=== PATIENT | female | born 1950 | race Caucasian/White ===

== ENCOUNTER 2023-08-03 15:27 | Outpatient (RCR) | payer OTHER, SELFPAY | END 2023-08-03 23:59 | disposition home or self-care (01) | LOC: RPT 15:27 | PROVIDERS: ATTENDING PHYSICIAN Orthopaedic Surgery; FAMILY PHYSICIAN Family Medicine | DX: Z47.89 Encounter for other orthopedic aftercare (principal); M54.51 Vertebrogenic low back pain; Z73.6 Limitation of activities due to disability; R26.89 Other abnormalities of gait and mobility; M54.6 Pain in thoracic spine | CPT/HCPCS: 97010; 97110; 97140 ==

== ENCOUNTER → 2023-11-21 15:17 | Outpatient (REF) | payer OTHER, SELFPAY | LOC: HWWDC 15:17 | PROVIDERS: ATTENDING PHYSICIAN Nurse Practitioner; FAMILY PHYSICIAN Family Medicine | DX: Z12.31 Encounter for screening mammogram for malignant neoplasm of breast (principal) | CPT/HCPCS: 77063; 77067 ==

== ENCOUNTER 2024-05-07 13:34 | Outpatient (RCR) | payer OTHER, SELFPAY | END 2024-05-07 23:59 | disposition home or self-care (01) | LOC: RPT 13:34 | PROVIDERS: ATTENDING PHYSICIAN Specialist; FAMILY PHYSICIAN Family Medicine | DX: Z47.1 Aftercare following joint replacement surgery (principal); M17.11 Unilateral primary osteoarthritis, right knee; Z73.6 Limitation of activities due to disability; M62.838 Other muscle spasm; Z96.651 Presence of right artificial knee joint | CPT/HCPCS: 97010; 97110; 97112; 97161; 97530 ==

== ENCOUNTER 2024-06-04 10:02 | Outpatient (RCR) | payer OTHER, SELFPAY | END 2024-06-04 23:59 | disposition home or self-care (01) | LOC: RPT 10:02 | PROVIDERS: ATTENDING PHYSICIAN Specialist; FAMILY PHYSICIAN Family Medicine | DX: Z47.1 Aftercare following joint replacement surgery (principal); M17.11 Unilateral primary osteoarthritis, right knee; Z73.6 Limitation of activities due to disability; Z96.651 Presence of right artificial knee joint | CPT/HCPCS: 97010; 97110; 97112; 97140; 97530 ==

== ENCOUNTER 2024-06-25 14:59 | Outpatient (RCR) | payer OTHER, SELFPAY | END 2024-06-27 14:44 | disposition home or self-care (01) | LOC: RPT 14:59 | PROVIDERS: ATTENDING PHYSICIAN Specialist; FAMILY PHYSICIAN Family Medicine | DX: Z47.1 Aftercare following joint replacement surgery (principal); M17.11 Unilateral primary osteoarthritis, right knee; Z73.6 Limitation of activities due to disability; Z96.651 Presence of right artificial knee joint; M62.81 Muscle weakness (generalized) | CPT/HCPCS: 97010; 97110; 97112; 97140; 97530 ==

== ENCOUNTER → 2024-09-21 13:47 | Outpatient (REF) | payer OTHER, SELFPAY | LOC: HWRAD 13:47 | PROVIDERS: ATTENDING PHYSICIAN Nurse Practitioner; FAMILY PHYSICIAN Family Medicine | DX: E78.5 Hyperlipidemia, unspecified (principal) | CPT/HCPCS: 75571 ==

== ENCOUNTER → 2025-02-22 14:08 | Outpatient (REF) | payer OTHER, SELFPAY | LOC: HWRAD 14:08 | PROVIDERS: ATTENDING PHYSICIAN Nurse Practitioner; FAMILY PHYSICIAN Family Medicine | DX: Z13.820 Encounter for screening for osteoporosis (principal); Z12.31 Encounter for screening mammogram for malignant neoplasm of breast | CPT/HCPCS: 77063; 77067; 77080 ==

== ENCOUNTER 2025-04-06 05:49 | Inpatient (IN) | payer OTHER, MEDICARE, SELFPAY ==
[2025-04-05 22:04] VITALS: BP 129/87
[2025-04-05 23:12] LABS: Hematocrit 44.1 % (37.0-47.0); Hemoglobin 14.8 g/dL (12.0-16.0); Mean Corp Hgb Conc. 33.6 g/dL (33.0-37.0); Mean Corpuscular Volume 88.6 fL (81.0-99.0); Nucleated Red Blood Cells % 0 %; Platelet Count 327 10^3/uL (130-400); Red Cell Dist. Width 13.2 % (11.5-14.5)
[2025-04-05 23:28] LABS: ALT (SGPT) 38 U/L (0-35); AST (SGOT) 30 U/L (14-36); Albumin 4.1 g/dl (3.5-5.0); Alkaline Phosphatase 82 U/L (38-126); Blood Urea Nitrogen 27 mg/dl (7-17); Calcium 9.9 mg/dl (8.4-10.2); Carbon Dioxide 28 mmol/L (22-30); Chloride 105 mmol/L (98-107); Glucose 179 mg/dl (70-99); Lipase 656 U/L (23-300); Potassium 3.8 mmol/L (3.5-5.1); Sodium 139 mmol/L (135-145); Total Protein 6.8 g/dl (6.3-8.2); eGFR 59.86
[2025-04-06] VITALS (11 sets, daily range): BP systolic 96–141; BP diastolic 53–70; PULSE 69–70; BMI 23.4
--- NOTE | 2025-04-06 01:29 | ED.GENMED ---
ED Provider Triage
<Surya Stern MD, Resident - Last Filed: 04/06/25 04:16>
-
Patient seen by provider in Triage?: Seen in Triage
History of Present Illness
<Surya Stern MD, Resident - Last Filed: 04/06/25 04:16>
General
Chief Complaint: Head Injury
Source: patient
Exam Limitations: none
Time Seen by Provider: 04/06/25 00:40
History of Present Illness
History of Present Illness:
74 year old female who has been complaining of abdominal pain and cloudy urine since 2 days. Initially she assumed she had a UTI, so she found a bottle of antibiotics at home and took just 1 pill today. She then experienced vomiting and diarrhea.
Was on toilet and experienced lightheadedness, fell off the toilet, hit her head and states that she lost consciousness. She has mild head pain. No dysuria, urgency, frequency, foul smelling urine, fever, chills. Not on blood thinners. The abdominal
pain intermittitent, is moderate in intensity, non radiating, dull in charecter.
Past History
<Surya Stern MD, Resident - Last Filed: 04/06/25 04:16>
Past History
ED Past Medical History: GERD and Hypothyroidism
ED Past Surgical History: Appendectomy, Gynecological and Orthopedic
Social History
Tobacco: Non-smoker
Alcohol: None
Drug: None
Personal:
Living: with family
Review of Systems
<Surya Stern MD, Resident - Last Filed: 04/06/25 04:16>
Review of Systems
All Other Systems: ROS reviewed and negative except as documented in HPI and ROS
Phy Exam
<Surya Stern MD, Resident - Last Filed: 04/06/25 04:16>
General Physical Exam
General Presentation: mild distress
General Habitus: elderly
Cardiovascular Exam
Cardiovascular Exam: regular rate/rhythm, no edema, no gallop, no JVD and no murmur
Pulmonary Exam
Pulmonary Exam: lungs clear and no respiratory distress
Cough: no cough
Gastrointestinal Exam
Gastrointestinal Exam: normal bowel sounds, soft, non distended and tender (moderate tenderness to palpation in the suprapubic area )
Neurological Exam
Neurological Exam: alert, oriented x3 and no motor deficits
Psychiatric Exam
Psychiatric Exam: normal mood/affect
Course
<Surya Stern MD, Resident - Last Filed: 04/06/25 04:16>
Orders/Labs/Results
Orders:
Orders
04/05/25 22:08
CT Head W/o Iv Contrast Urgent
Comment:
Reason For Exam: head injury
04/05/25 22:09
Urinalysis Reflex To Culture Urgent
Date Specimen was Collected: 04/05/25
Time Specimen was Collected: 22:09
04/05/25 23:05
Complete Blood Count/With Diff Urgent
Comprehensive Metabolic Panel Urgent
Lactic Acid Urgent
Lipase Urgent
04/06/25 01:42
Electrocardiogram (*1) Urgent
Reason for Study: Syncope
CT Abd/pelvis W Iv Cont Urgent
Comment:
Reason For Exam: abd pain, vomiting
EKG- Treatment ONCE
04/06/25 02:38
Urine Microscopic Reflex Cult Urgent
Urine Culture Urgent
ULYSSES Source: U
Specimen Description:
Date Specimen was Collected: 04/05/25
Time Specimen was Collected: 22:09
04/06/25 03:49
CefTRIAXone [Rocephin] 1,000 mg IV NOW STA
04/06/25 03:50
0.9% Sodium Chloride 1000 ml [Nss] 1,000 ml IV BOLUS
04/06/25 03:58
Stool Culture Urgent
ULYSSES Source: Feces/Stool
Specimen Description:
04/06/25 04:00
Blood Culture Q30M
ULYSSES Source: Blood/Venous
Specimen Description:
04/06/25 04:30
Blood Culture Q30M
ULYSSES Source: Blood/Venous
Specimen Description:
Abnormal Lab Results
04/05/25 04/06/25
23:05 02:38
WBC 17.9 H 10^3/uL
(4.8-10.8)
Abs Immat Gran (auto) 0.1 H 10^3/uL
(0-0.05)
Absolute Neuts (auto) 15.8 H 10^3/uL
(1.4-6.5)
Neutrophils % 88.4 H %
(42.2-75.2)
Lymphocytes % 8.5 L %
(20.5-51.1)
BUN 27 H mg/dl
(7-17)
Glucose 179 H mg/dl
(70-99)
ALT 38 H U/L
(0-35)
Lipase 656 H U/L
(23-300)
Urine Ketones 1+ A
(Negative)
Ur Occult Blood Reflex 1+ A
(Negative)
Leukocyte Esterase Rfl 1+ A
(Negative)
Urine Albumin (Reflex) 2+ A
(Neg - Trace)
04/05/25 23:05
04/05/25 23:05
Vital Signs
Initial and Last Documented VS:
Initial Vital Signs
Pulse Resp BP Pulse Ox
95 18 129/87 98
04/05/25 22:04 04/05/25 22:04 04/05/25 22:04 04/05/25 22:04
Last Documented Vital Signs
Temp Pulse Resp BP Pulse Ox
97.3 F 95 21 124/70 96
04/06/25 01:04 04/06/25 03:30 04/06/25 03:30 04/06/25 03:00 04/06/25 02:45
<Scotty Payton MD - Last Filed: 04/06/25 02:13>
Orders/Labs/Results
Orders:
Orders
04/05/25 22:08
CT Head W/o Iv Contrast Urgent
Comment:
Reason For Exam: head injury
04/05/25 22:09
Urinalysis Reflex To Culture Urgent
Date Specimen was Collected: 04/05/25
Time Specimen was Collected: 22:09
04/05/25 23:05
Complete Blood Count/With Diff Urgent
Comprehensive Metabolic Panel Urgent
Lactic Acid Urgent
Lipase Urgent
04/06/25 01:42
Electrocardiogram (*1) Urgent
Reason for Study: Syncope
CT Abd/pelvis W Iv Cont Urgent
Comment:
Reason For Exam: abd pain, vomiting
EKG- Treatment ONCE
04/06/25 02:38
Urine Microscopic Reflex Cult Urgent
Urine Culture Urgent
ULYSSES Source: U
Specimen Description:
Date Specimen was Collected: 04/05/25
Time Specimen was Collected: 22:09
04/06/25 03:49
CefTRIAXone [Rocephin] 1,000 mg IV NOW STA
04/06/25 03:50
0.9% Sodium Chloride 1000 ml [Nss] 1,000 ml IV BOLUS
04/06/25 03:58
Stool Culture Urgent
ULYSSES Source: Feces/Stool
Specimen Description:
04/06/25 04:00
Blood Culture Q30M
ULYSSES Source: Blood/Venous
Specimen Description:
04/06/25 04:30
Blood Culture Q30M
ULYSSES Source: Blood/Venous
Specimen Description:
Abnormal Lab Results
04/05/25 04/06/25
23:05 02:38
WBC 17.9 H 10^3/uL
(4.8-10.8)
Abs Immat Gran (auto) 0.1 H 10^3/uL
(0-0.05)
Absolute Neuts (auto) 15.8 H 10^3/uL
(1.4-6.5)
Neutrophils % 88.4 H %
(42.2-75.2)
Lymphocytes % 8.5 L %
(20.5-51.1)
BUN 27 H mg/dl
(7-17)
Glucose 179 H mg/dl
(70-99)
ALT 38 H U/L
(0-35)
Lipase 656 H U/L
(23-300)
Urine Ketones 1+ A
(Negative)
Ur Occult Blood Reflex 1+ A
(Negative)
Leukocyte Esterase Rfl 1+ A
(Negative)
Urine Albumin (Reflex) 2+ A
(Neg - Trace)
04/05/25 23:05
04/05/25 23:05
Vital Signs
Initial and Last Documented VS:
Initial Vital Signs
Pulse Resp BP Pulse Ox
95 18 129/87 98
04/05/25 22:04 04/05/25 22:04 04/05/25 22:04 04/05/25 22:04
Last Documented Vital Signs
Temp Pulse Resp BP Pulse Ox
97.3 F 95 21 124/70 96
04/06/25 01:04 04/06/25 03:30 04/06/25 03:30 04/06/25 03:00 04/06/25 02:45
<Surya Stern MD, Resident - Last Filed: 04/06/25 04:16>
MDM/Problems Addressed
MDM/Problems Addressed:
74 y/o female presents with abdominal pain, s/p head injury, and an episode of syncope while using toilet.
Will order non contrast CT scan of head as she meets Dixon head ct criteria.
Awaiting results of UA
Will order CT scan of abdomen as she has increased wbc count and suprapubic pain
Ordered EKG to check for cardiovascular causes of syncope
<Surya Stern MD, Resident - Last Filed: 04/06/25 04:16>
*Pulse Oximetry
SaO2: 98
<Surya Stern MD, Resident - Last Filed: 04/06/25 04:16>
Update Note
Update Note:
- CT of the head normal
- UA shows 1+ leucocyte esterase and negative nitrates so possible UTI infection
-
ED Attending Note
<Surya Stern MD, Resident - Last Filed: 04/06/25 04:16>
ED Attending Note
Patient seen and examined by attending physician: Yes
-
Portions of this chart may have been created with voice recognition software.� Occasional wrong word or��sound alike� substitutions may have occurred due to the inherent limitations of voice recognition software.
<Scotty Payton MD - Last Filed: 04/06/25 02:13>
ED Attending Note
Patient seen and examined by attending physician: Yes
I performed a history and physical exam of patient and discussed management with resident, I reviewed resident's note and agree with documented findings and plan of care.: Yes
ED Attending Note:
I have seen and evaluated the patient with a [id number] encounter. I have spoken to the resident and involved in the medical history, the physical exam, medical decision making.
Evaluation and management service: agree unless noted differently below.
Results interpretation: agree unless noted differently below.
Focused HPI: 74-year-old female with a past medical history as noted presents to the ER with her for evaluation of multiple issues�primarily complaining of abdominal pain but also had syncopal episode tonight and had head strike. Patient
reports that she has been having cloudy urine for about 2 days and has been having some abdominal pain which has been worsening over that period of time. She says that tonight has been having some vomiting as well as loose stools. While she was on
the toilet she became lightheaded and had syncopal episode. She says she hit her head on the ground. She denies any other injuries. No headache or neck pain, back pain or pain in the extremities. She denies any associated chest pain or
palpitations. Denies any other acute complaints.
Physical exam: Awake and alert not in distress. Vital signs all within acceptable range. She has no signs of significant trauma to the head. No tenderness in the thoracic or lumbar spine or in the cervical spine. No rib tenderness or tenderness
in the extremities. She has no cardiac rubs gallops or murmurs. Lungs sound clear. Abdomen soft but moderately tender in the lower abdomen.
Medical Decision Makin-year-old female presents for evaluation of abdominal pain with dark urine, nausea/vomiting/diarrhea; also had syncopal episode tonight while in the toilet and had minor head strike. Fortunately no other serious traumatic
injuries. CT head here shows nothing acute. Syncope sounds likely to be vasovagal in the setting of profuse diarrhea and vomiting; EKG shows sinus rhythm with no ectopy. Regarding her abdominal pain: She had lab work sent that showed a
leukocytosis to 17.9. Chemistry no clinically significant abnormalities. Lipase is slightly elevated. Awaiting urinalysis. Will check CT abdomen. Reassess after the above.
Discharge Plan
Departure
Patient Disposition: Admit
Date of Disposition: 04/06/25
Time of Disposition: 03:53
Admit to doctor: Keesha
Presentation/result/management discussed w/ accepting MD/DO: Hospitalist
Discharge Problem:
Syncope, Abdominal pain
Prescriptions:
No Action
levothyroxine 112 MCG tablet
112 mcg PO DAILY
esomeprazole magnesium [Nexium] 20 mg Capsule,Delayed Release(Dr/Ec)
20 mg PO DAILY
cetirizine [Zyrtec] 10 mg Tablet
10 mg PO DAILYPRN PRN (Reason: Allergies)
calcium carbonate 500 mg calcium (1,250 mg) Tablet
500 mg PO DAILY Qty: 0
magnesium 250 mg Tablet
250 mg PO DAILY
cholecalciferol (vitamin D3) [Vitamin D3] 25 mcg (1,000 unit) Tablet
25 mcg PO DAILY Qty: 0
magnesium citrate Solution
150 ml PO DAILYPRN PRN (Reason: constipation)
vitamin K2 (MK-4) 100 mcg Tablet
100 mcg PO DAILY
acetaminophen [Pain Relief ES (acetaminophen)] 500 mg tablet
1,000 mg PO Q6HPRN PRN (Reason: headache)
oxycodone 5 mg Tablet
2.5 mg PO Q8HPRN PRN (Reason: moderate severe pain) 7 Days Qty: 21 0RF
Rx Instructions:
5mg if pain severe, 2.5mg half tab if pain moderate
sennosides-docusate sodium [Senna Plus] 8.6-50 mg Tablet
1 tab PO BID 30 Days Qty: 60 0RF
Rx Instructions:
Hold if diarrhea
Referrals:
Shivam Redmond MD [Family Provider, Family Practice]
Interventions
Interventions:
*Risk Screen - Suicide Last Done: 04/06/25 01:04
*General Assessment Last Done: 04/06/25 01:04
*Neglect/Abuse Screening Last Done: 04/06/25 01:04
*ED- Fall Risk Assessment Last Done: 04/06/25 01:04
*ED COVID-19 Vaccine History Last Done: 04/06/25 01:04
ED- Neurological Assessment Last Done: 04/06/25 01:19
ED-Skin Assessment Last Done: 04/06/25 01:19
Discharge Date and Time
Print Language: POLISH
[2025-04-06 02:43] LABS: Urine Character Clear (Clear)
[2025-04-06 03:00] LABS: Urine White Cell Cast 0-2 /LPF
[2025-04-06 03:01] LABS: Urine Red Blood Cell 0-2 /HPF (0-2); Urine Squamous Cell 0-2 /LPF (Few)
[2025-04-06] MEDS: NSS 1000 IV (04:55)
[2025-04-06] MEDS: ROCEPHIN 1000 MG IV (04:56)
--- NOTE | 2025-04-06 05:10 | HPS.HSE ---
Family Physician
-
Family Physician: Shivam Redmond
Chief Complaint
-
Abdominal symptoms
History of Present Illness
This is a 74-year-old female who reports a past medical history of hypothyroid presenting to the emergency department with syncopal episode after/during an episode of intractable nausea vomiting and diarrhea.
Patient reported that she had developed suprapubic and pelvic discomfort a few days ago. She denied any flank pain. She denies dysuria. She denies nausea vomiting or diarrhea at that time. She then noted at she had cloudy urine. She was unable
to reach her physician and took some antibiotic at home today prior to coming to the emergency department. After taking the antibiotic she developed nausea vomiting and diarrhea. Patient reported that she felt that the GI symptoms were oncoming
prior to taking the antibiotics and she started having the symptoms almost immediately after taking antibiotic.
She denied any antecedent abdominal pain except for the right sided pelvic/suprapubic pain. She denies fevers or chills. She stated that she had stocks a large in the refrigerator at work over 2 weeks ago but otherwise no unusual foods. No sick
contacts, no recent travels. She reported several nonbloody and nonbilious emesis and while sitting on the commode she had frequent voluminous watery stools without any blood. At some point she was sitting on the kitchen table and passed out
smacking her head on the table and finding herself ultimately on the floor. Is not clear exactly how long she was unconscious for her but it sounds very temporary. When she came to she was alert and oriented and had no loss of bladder or bowel
continence.
On arrival in the emergency department she remains afebrile with a temp of nine 7.3, blood pressure was as high as 120/70 and as low as 90 systolic. Pulse was 95. She was satting 96% on room air. ECG shows sinus rhythm at rate of [address] of the head shows no acute intracranial abnormality. 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
CBC shows a white count of 17.9, hemoglobin and platelets were normal. Electrolytes BUN/creatinine are normal. Lipase was elevated at 656, LFTs were unremarkable.
CT of the abdomen pelvis showing mild wall thickening of loops of small bowel with the lower abdomen including at the ileum and likely mild diffuse colonic wall thickening concerning for enterocolitis. There is hyperenhancement of the right ureter
which may represent a urinary tract infection.
UA itself is notable for 1+ leukocyte Estrace but otherwise unremarkable.
Medical History
Past Medical History
Past Medical History: Reports Hypothyroidism
Past Surgical History: Reports Orthopedic (Bilateral total knee arthroplasty, right shoulder surgery, spinal laminectomy)
Social History
Tobacco: Non-smoker
Alcohol: Occasional
Drug: None
Personal:
Living: With Family
Family History
Family History: Not pertinent
Allergies / Home Medications
Allergies reflects when Allergies were last updated in [facility].
Home Medications with original date entered in [facility]
Allergy/Medication List:
Allergies
Allergy/AdvReac Type Severity Reaction Status Date / Time
morphine Allergy Vomiting Verified 04/05/25 22:07
penicillin G Allergy -1980 Verified 04/05/25 22:07
Penicillins Allergy Hives-1980 Verified 04/05/25 22:07
pollen extracts Allergy SEASONAL-NASAL Verified 04/05/25 22:07
CONGESTION
Home Medications
levothyroxine 112 mcg tablet 112 mcg PO DAILY Thyroid 12/19/20
Review of Systems
-
Constitutional: Reports No Symptoms
EENT: Reports No Symptoms
Respiratory: Reports No Symptoms
Cardiac: Reports No Symptoms
Abdomen/GI: Reports Abdominal Pain, Vomiting and Diarrhea
: Reports No Symptoms
Musculoskeletal: Reports No Symptoms
Neurological: Reports No Symptoms
Endocrine: Reports No Symptoms
Hematologic/Lymphatic: Reports No Symptoms
Psych: Reports No Symptoms
Physical Exam
Vital Signs
Vital Signs
Temp Pulse Resp BP Pulse Ox
97.3 F 95 21 124/70 96
04/06/25 01:04 04/06/25 03:30 04/06/25 03:30 04/06/25 03:00 04/06/25 02:45
Physical Exam
General: No Apparent Distress
HEENT: NormoCephalic, Moist mucous membranes and Atraumatic
Respiratory: Clear
Cardiac: S1/S2 and Regular Rhythm; No Murmur or Rub
GI: Soft, Normal Bowel Sounds and Tender (Right lower quadrant and suprapubic TTP, no rebound or guarding); No Organomegaly
Rectal: Deferred by Provider
Musculoskeletal: No Clubbing, No Cyanosis and No Edema
Skin: Rash and Other (Dressing soaked)
Neuro: AO x 3 and Nonfocal/grossly intact
Psych: Calm
Laboratory Results
-
04/05/25 23:05
04/05/25 23:05
Laboratory Results
Lactic Acid 1.4 mmol/L (0.7-2.0) 04/05/25 23:05
Total Bilirubin 0.6 mg/dl (0.2-1.3) 04/05/25 23:05
AST 30 U/L (14-36) 04/05/25 23:05
ALT 38 U/L (0-35) H 04/05/25 23:05
Alkaline Phosphatase 82 U/L (38-126) 04/05/25 23:05
Lipase 656 U/L (23-300) H 04/05/25 23:05
Data Reviewed
-
CT Scan: Report Reviewed by me
Medical Tests (Nuc Med, Echo, EKG etc): Image Personally Visualized and interpreted
Lab Data: Labs Reviewed by me
Impression/Plan
-
IMPRESSION:
74 F with history of hypothyroidism who presents with episode of intractable Nausea then vomiting associated with a syncopal episode. Had recent cloudy urine and RLQ and suprapubic pain. Took one oral abx prior to onset of N/V today. WBC 17.9.
Lipase 669. U/A without clear evident UTI. CT a/p showing enterocolitis with mild wall thicking of small bowel loops and diffuse colonic wall thickening. Notably the right ureter shows hyperenhancement that correlates with her area of discomfort
c/w UTI however there is no notable flank pain.
PLAN:
1. UTI - Possible UTI with R suprapubic pain and + CT findings of ureteral inflammmation. However U/A is not as convincing.
- admit to med/surg
- urine cultures sent
- continue iv ceftriaxone for now
- pain control, intolerant of opioids
2. Enterocolitis - Acute enteritis and colitis with n/v/d. Suspect viral in nature and possible etiology of abdominal pain as well.
- stool cultures pending, no diarrhea so far in in ED
- clear liquid diet
- pain control, antiemetics and iv fluids
3. Elevated lipase - Isolated lipase elevation. No etoh. No stones. No GLP agonist. Possible viral or interstitial pancreatitis
- clear liquids for now
- iv fluids and pain control
- unlikely related to elevated triglycerides
- trend levels, if remains elevated, will need GI consult for unusual causes of pancreatitis such as igg4
4. Hypothyroid
- continue levothyroxine
5. Syncope - suspect vasovagal in setting of vomiting and diarrhea. ECG with frequent pvcs. K, ok
- tele
- orthostatics
- check mag
- monitor with fluid repletions and symptomatic management
DVT PPX - lovenox sq
Code status- full code
[2025-04-06] MEDS: LR 1000 IV ×2 (07:59→17:42)
[2025-04-06] MEDS: SYNTHROID 112 MCG PO (08:13)
[2025-04-06] MEDS: FLAGYL 500 MG PO ×3 (10:08→23:55)
[2025-04-06] MEDS: TYLENOL 650 MG PO ×2 (10:08→21:48)
[2025-04-06 10:31] LABS: Hematocrit 36.4 % (37.0-47.0); Hemoglobin 12.4 g/dL (12.0-16.0); Mean Corp Hgb Conc. 34.1 g/dL (33.0-37.0); Mean Corpuscular Volume 89.4 fL (81.0-99.0); Platelet Count 281 10^3/uL (130-400); Red Cell Dist. Width 13.3 % (11.5-14.5)
[2025-04-06 10:58] LABS: ALT (SGPT) 28 U/L (0-35); AST (SGOT) 21 U/L (14-36); Albumin 3.3 g/dl (3.5-5.0); Alkaline Phosphatase 60 U/L (38-126); Blood Urea Nitrogen 18 mg/dl (7-17); Calcium 8.7 mg/dl (8.4-10.2); Carbon Dioxide 27 mmol/L (22-30); Chloride 106 mmol/L (98-107); Estimated Creatinine Clearance 57 ml/min; Glucose 121 mg/dl (70-99); Potassium 4.5 mmol/L (3.5-5.1); Sodium 136 mmol/L (135-145); Total Protein 5.6 g/dl (6.3-8.2); eGFR > 60.00
--- NOTE | 2025-04-06 12:20 | W.PN.UPDATE ---
Update Note
Progress Note Update
Admitted 5 AM with concern for UTI And possible colitis
CT (no oral contrast) concerning for enterocolitis, colonic mass but radiology requested repeat CT with oral and IV; patient agreeable
at present, no diarrhea, mild abd discomfort. No fever/chills
Assessment:
Suspected UTI
- R suprapubic pain
- CT: with ureteral inflammation
- UA not convincing of infection but culture pending (patient did take antibiotics at home - prior supply from prior infection)
- continue Rocephin, day 1
- pain control
Possible Enterocolitis
- CT with underdistention in setting of lack of oral contrast; report concerning for enterocolitis, colonic mass
- d/w Radiology; will repeat with IV and oral contrast Tuesday AM
- clear liquids
- pain control, anti-emetics
- IVF
- continue Rocephin/Flagyl, day 1
Isolated lipase elevation
- no evidence of pancreatitis by imaging
Hypothyroidism - continue replacement
Vagal syncope in setting of diarrhea/vomiting
- tele
- orthostatic VS
- continue IVF
- PT eval
DVT ppx: Lovenox
Code: Full
[2025-04-06] MEDS: TORADOL 15 MG IV (14:59)
[2025-04-06] MEDS: ROCEPHIN 2000 MG IV (15:00)
[2025-04-06] MEDS: STERILE WATER FOR INJECTION 20 ML IV (15:00)
[2025-04-06] MEDS: FLUSH (NSS) 10 FLUSH IV ×2 (15:00→15:19)
[2025-04-06] MEDS: ZOFRAN 4 MG IV (15:09)
[2025-04-06] MEDS: LOVENOX 40 MG SC (17:42)
[2025-04-07] VITALS (7 sets, daily range): BP systolic 106–140; BP diastolic 61–74; PULSE 72–80
[2025-04-07] MEDS: LR 1000 IV ×2 (03:20→13:43)
[2025-04-07] MEDS: SYNTHROID 112 MCG PO (06:28)
[2025-04-07 07:39] LABS: Hematocrit 38.6 % (37.0-47.0); Hemoglobin 12.6 g/dL (12.0-16.0); Mean Corp Hgb Conc. 32.6 g/dL (33.0-37.0); Mean Corpuscular Volume 91.7 fL (81.0-99.0); Platelet Count 302 10^3/uL (130-400); Red Cell Dist. Width 13.6 % (11.5-14.5)
[2025-04-07 08:06] LABS: Blood Urea Nitrogen 10 mg/dl (7-17); Calcium 9.4 mg/dl (8.4-10.2); Carbon Dioxide 28 mmol/L (22-30); Chloride 109 mmol/L (98-107); Estimated Creatinine Clearance 50 ml/min; Glucose 102 mg/dl (70-99); Magnesium 2.0 mg/dl (1.6-2.3); Potassium 4.4 mmol/L (3.5-5.1); Sodium 140 mmol/L (135-145); eGFR > 60.00
[2025-04-07] MEDS: FLAGYL 500 MG PO ×2 (08:48→16:11)
[2025-04-07] MEDS: OMNIPAQUE 50 ML PO (08:57)
[2025-04-07] MEDS: ZOFRAN 4 MG IV (09:20)
--- NOTE | 2025-04-07 11:48 | W.PN.HOSP.TC ---
Today's Communication/Plan
-
continue IV abx
Full liquids
GI evaluation
Assessment / Plan
Assessment / Plan
Assessment:
Suspected UTI
- R suprapubic pain
- CT: with ureteral inflammation; suspect secondary to acute bowel issues. Urine culture no growth
Enterocolitis
- initial CT with underdistention in setting of lack of oral contrast; report concerning for enterocolitis, colonic mass
- repeat CT: Nodular wall thickening involving the distal ileum, suggestive of enteritis. There is an ovoid mass at the posterior and superior margin of the distal ileum, suspicious for phlegmon/abscess. Neoplastic mass could also be considered, but
felt to be less likely
- diet: Full liquids
- pain control, anti-emetics
- IVF x 1 more bag
- continue Rocephin/Flagyl, day 2
- GI consulted
- patient likely needs outpatient scope
Isolated lipase elevation
- no evidence of pancreatitis by imaging
Hypothyroidism - continue replacement
Vagal syncope in setting of diarrhea/vomiting
- tele
- orthostatic VS
- continue IVF
- PT eval - no needs
DVT ppx: Lovenox
Code: Full
Anticipated Discharge: 24 - 48 hours
Subjective/Interval History
-
Date of Service: April 07, 2025
pain improving
reports some ongoing diarrhea
tolerating Abx
tolerating clears
Objective Data
-
Labs:
Laboratory Results
04/07/25
07:19
WBC 11.6 H
Hgb 12.6
Hct 38.6
Plt Count 302
Sodium 140
Potassium 4.4
Chloride 109 H
Carbon Dioxide 28
BUN 10
Creatinine 0.8
Glucose 102 H
Calcium 9.4
Vital Signs:
Vital Signs
Temp Pulse Resp BP Pulse Ox
98 F 63 18 117/74 99
04/07/25 08:27 04/07/25 08:27 04/07/25 08:27 04/07/25 08:27 04/07/25 08:27
I&O
04/06/25 04/07/25 04/08/25
06:59 06:59 06:59
Intake Total 240 / 240
Balance 240 / 240
Physical Exam
-
General: No Apparent Distress
HEENT: Normocephalic and Atraumatic
Respiratory: Negative Wheezes
Cardiac: Regular Rhythm and S1/S2
GI: Soft, Nondistended and Tender
Musculoskeletal: No Edema
Neuro: AO x 3
Psych: Calm
Data Reviewed
-
Total Time Spent with Patient (in minutes): 42
Labs: Labs Reviewed by me
--- NOTE | 2025-04-07 12:04 | PTOTSP ---
Chart reviewed, spoke with nurse. Patient observed ambulating in the room independently. Patient denied the need for PT evaluation, stating there have been no changes in her level of function. Patient denied concerns being able to do stairs upon
return home. PT will sign off at this time; patient is aware our services are available if needed.
--- NOTE | 2025-04-07 12:12 | CM ---
Met with patient at bedside
Pharmacy verified: [facility] @ [address]
Family Physician: Kelly Taylor; Address: [address] [place], [place] [address], [place] [address];
Lives w/ ; multilevel home; 18 steps to enter, railing present; living quarters, bedroom and bath all on first floor
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 No DME
will transport
No SNF or Home Health utilization history
Plan: discharge to home when medically stable; no needs anticipated
[2025-04-07] MEDS: FLUSH (NSS) 1 FLUSH IV ×2 (16:11→16:28)
[2025-04-07] MEDS: ROCEPHIN 2000 MG IV (16:11)
[2025-04-07] MEDS: STERILE WATER FOR INJECTION 20 ML IV (16:11)
--- NOTE | 2025-04-07 17:12 | CON.GI ---
Consultation
-
Date/Time Consultation Requested: 04/07/2025
Date/Time Consultation Performed: 04/07/2025
Requesting Provider:
Performing Provider:
Reason for Consultation: n/v/d/abdominal pain, abn CT
Medical History
Chief Complaint / HPI
Chief Complaint: n/v/d/pain
History of Present Illness:
This is a very pleasant 74-year-old female with PMH of Hypothyroidism, GERD, colon polyps who was in her usual state of health up until Tuesday when she started experiencing right lower quadrant pain after she took a shower in the evening and
subsequently had multiple episodes of vomiting and then started to have multiple episodes of watery diarrhea and felt diaphoretic and had a syncopal episode in the bathroom and fell and hit her head and presented to the ER 04/05. She had a head CT
in the ER which was negative for bleed. She states that for the past 1 month she has been having mild right lower quadrant pain which was worse with eating and she thought it could be from mild diverticulitis so she cut back on eating nuts and
seeds. No fevers or chills. She denies eating out anywhere recently. On Tuesday night also she had homemade dinner she ate 2 slices of jones and perogies. She has not had any further episodes of vomiting since admission. No rectal bleeding. She
still has diarrhea today. She is tolerating clear liquids and advanced to full liquids today. On imaging when she came to the hospital was initially done without oral contrast and showed probable ascending colon mass versus underdistention and
then had a repeat CAT scan today with oral and IV contrast which showed nodular wall thickening involving the distal ileum suggestive of enteritis with probable mass in the distal ileum versus phlegmon or abscess less likely neoplasm, probable
ascending colitis, no free air. She was also noted to have gallstones. She is also status post appendectomy in 2021. She has been started on antibiotics since admission has been on ceftriaxone and metronidazole and she feels much improved. Her
last colonoscopy was in [address] Pederson she had a tubular adenoma and also had a few aphthous ulcers in the ileocecal valve and was noted to have ulceration in the terminal ileum but the biopsies were negative for any chronic inflammation.
Past Medical History
Past Medical History: Other (Hypothyroidism, GERD, colon polyps)
Past Surgical History: Other (Bilateral total knee arthroplasty, right shoulder surgery, spinal laminectomy, appendectomy 2021 )
Social History
Tobacco: Non-Smoker
Alcohol: Occasional
Drug: None
Personal:
Living: With Family
Family History
Family History: Reviewed & Not Pertinent (no colon cancer/IBD/celiac)
Allergies / Home Medications
Allergy/AdvReac Type Severity Reaction Status Date / Time
morphine Allergy Vomiting Verified 04/05/25 22:07
penicillin G Allergy Hives-1980 Verified 04/05/25 22:07
Penicillins Allergy Hives-1980 Verified 04/05/25 22:07
pollen extracts Allergy SEASONAL-NASAL Verified 04/05/25 22:07
CONGESTION
�Medication �Instructions �Recorded
levothyroxine 112 mcg tablet 112 mcg PO DAILY Thyroid 12/19/20
esomeprazole magnesium 20 mg 20 mg PO DAILY Gastrointestinal 01/27/22
capsule,delayed release (Nexium) issue
cetirizine 10 mg tablet (Zyrtec) 10 mg PO DAILYPRN PRN Allergies 01/28/22
calcium carbonate 500 mg PO DAILY ##0 04/18/23
cholecalciferol (vitamin D3) 25 25 mcg PO DAILY ##0 04/18/23
mcg (1,000 unit) tablet (Vitamin
D3)
magnesium 250 mg tablet 250 mg PO DAILY 04/18/23
acetaminophen 500 mg tablet (Pain 1,000 mg PO Q6HPRN PRN headache 04/26/23
Relief Extra Strength
(acetaminophen))
magnesium citrate 150 ml PO DAILYPRN PRN constipation 04/26/23
vitamin K2 (MK-4) 100 mcg tablet 100 mcg PO DAILY 04/26/23
oxycodone 5 mg tablet 2.5 mg (1/2 x 5 mg) PO Q8HPRN PRN 04/29/23
moderate severe pain 7 days #21
tabs
sennosides 8.6 mg-docusate sodium 1 tab PO BID 30 days #60 tabs 04/29/23
50 mg tablet (Senna Plus)
Review of Systems
-
All other systems: A 12 pt ROS was Negative except as stated above in HPI
Vital Signs
Temp Pulse Resp BP Pulse Ox
99.1 F 80 20 115/64 93
04/07/25 16:37 04/07/25 16:37 04/07/25 16:37 04/07/25 16:37 04/07/25 16:37
Physical Exam
Exam
General: No Apparent Distress
HEENT: Normocephalic
Respiratory: Clear
Cardiac: Regular Rhythm
GI: Other (Soft, mild right lower quadrant tenderness, mildly distended, no rebound guarding or rigidity, good bowel sounds)
Musculoskeletal: No Clubbing
Skin: Warm
Neuro: Awake, Alert and Oriented
Psych: Calm
Results
WBC 11.6 10^3/uL (4.8-10.8) H 04/07/25 07:19
Hgb 12.6 g/dL (12.0-16.0) 04/07/25 07:19
Hct 38.6 % (37.0-47.0) 04/07/25 07:19
MCV 91.7 fL (81.0-99.0) 04/07/25 07:19
Plt Count 302 10^3/uL (130-400) 04/07/25 07:19
Absolute Neuts (auto) 15.8 10^3/uL (1.4-6.5) H 04/05/25 23:05
Sodium 140 mmol/L (135-145) 04/07/25 07:19
Potassium 4.4 mmol/L (3.5-5.1) 04/07/25 07:19
Chloride 109 mmol/L (98-107) H 04/07/25 07:19
Carbon Dioxide 28 mmol/L (22-30) 04/07/25 07:19
BUN 10 mg/dl (7-17) 04/07/25 07:19
Creatinine 0.8 mg/dL (0.6-1.0) 04/07/25 07:19
Calcium 9.4 mg/dl (8.4-10.2) 04/07/25 07:19
Total Bilirubin 0.6 mg/dl (0.2-1.3) 04/06/25 10:23
AST 21 U/L (14-36) 04/06/25 10:23
ALT 28 U/L (0-35) 04/06/25 10:23
Alkaline Phosphatase 60 U/L (38-126) 04/06/25 10:23
Lipase 656 U/L (23-300) H 04/05/25 23:05
Diagnostic Image Results:
04/07/2025 CT Abd/pel W Iv And Oral Contr
IMPRESSION: Patient is status post appendectomy.
Nodular wall thickening involving the distal ileum, suggestive of enteritis. There is an ovoid mass at the posterior and superior margin of the distal ileum, suspicious for phlegmon/abscess. Neoplastic mass could also be considered, but felt to be
less likely.
Mild thickening of the wall the inferior right colon, most likely reactive colitis.
No evidence for free intraperitoneal air.
Small amount of free fluid in the left posterior pelvis.
Stable 8 mm calcification within the right ovary.
3.7 cm fibroid is seen.
Cholelithiasis. No evidence for acute cholecystitis or biliary ductal dilation.
04/06/2025 CT Abd/pelvis W Iv Cont
IMPRESSION: Questionable mild enterocolitis versus findings due to limited distention. Limited exam without oral contrast.
Possible ascending colonic mass versus findings due to limited distention and postsurgical change. Nonurgent repeat examination with oral contrast recommended.
Mild enhancement of the proximal right ureter. This can be seen with UTI. Clinical and laboratory correlation recommended.
Prior GI Procedures:
EGD: none
Colonoscopy: 09/09/2017
Impression: - One 3 mm polyp in the transverse colon, removed with a
cold biopsy forceps. Resected and retrieved.- TA
- A few ulcers at the ileocecal valve. Biopsied.-Minimal acute inflammation no crypt abscess or granuloma
- Ulcerated mucosa in the terminal ileum. Biopsied.-Was normal with no inflammation noted
- The examination was otherwise normal.
Assessment / Plan
-
1. Acute onset of worsening abdominal pain RLQ Tuesday night with multiple episodes of nausea vomiting and watery diarrhea and CT suggestive of distal terminal ileitis with questionable phlegmon or abscess but she is currently nontoxic. Doubt
neoplasm. Will need to rule out probable infectious etiology versus Crohn's ileitis. On her prior colonoscopy with Dr. Pederson 2017 there was mild nonspecific inflammation in the distal ileum but biopsies were benign and had minimal inflammation with
no chronic changes and she really has not had any symptoms up until recently. over the past 1 month has been having mild right lower quadrant discomfort. if her symptoms worsen may need drainage of the right lower quadrant phlegmon or abscess. Will
repeat CTE/MRE in the next couple of weeks but will also schedule her for colonoscopy in 4 to 6 weeks but may need sooner if her symptoms are not improved/ recur after antibiotics are discontinued. if there is evidence of chronic inflammation
suggestive of Crohn's will start her on Biologics. But since her symptoms have improved with antibiotics will continue. She likely had symptoms of partial small bowel obstruction from the inflammation but will also need to rule out a stricture.
Will also get CRP and IBD serologies. will follow-up on stool studies. She denies any recent use of antibiotics or travel.
Data Reviewed
-
CT Scan: Report Reviewed by me
Old Records: Reviewed
Time spent with patient (in minutes): 60
-
-
Thank you for consultation and allowing me to participate in the patient's care. Please call the vocational childcare teacher GI physician during the after hours with any questions or concerns.
[2025-04-07] MEDS: LOVENOX SC (17:16)
[2025-04-08] MEDS: LR 1000 IV ×3 (00:01→16:48)
[2025-04-08] MEDS: FLAGYL 500 MG PO ×4 (00:03→23:22)
[2025-04-08 03:00] VITALS: BP 115/67
[2025-04-08] MEDS: SYNTHROID 112 MCG PO (06:46)
[2025-04-08 08:00] VITALS: BP 131/61
[2025-04-08 08:37] LABS: Hematocrit 38.7 % (37.0-47.0); Hemoglobin 12.7 g/dL (12.0-16.0); Mean Corp Hgb Conc. 32.8 g/dL (33.0-37.0); Mean Corpuscular Volume 92.4 fL (81.0-99.0); Platelet Count 303 10^3/uL (130-400); Red Cell Dist. Width 13.5 % (11.5-14.5)
[2025-04-08] MEDS: TUMS CHEWABLE TABLET 400 MG PO ×2 (09:44→19:26)
--- NOTE | 2025-04-08 09:47 | W.PN.GI.CBS2 ---
Addendum entered and electronically signed by Leah Glass MD 04/08/25 14:24:
I saw and examined the patient.
The SOFTWARE CONFIGURATION ENGINEER's note was reviewed and I agree with the note.
Comment: Stool studies are negative for cryptosporidia and Giardia also negative for C. difficile. Stool cultures are also negative. She is feeling improved, diarrhea is improving and stool is more formed today. Her abdominal pain and distention
also are improving. WBC count is also improved and now normal on antibiotics. Her CRP is 13.7, celiac serologies and IBD serologies are pending. Discussed with Dr. Iftikhar Murphy who discussed with IR and they are unable to access or drain the right
lower quadrant phlegmon or abscess since there is bowel around it. Will consult colorectal surgery. Symptoms clinically are improving. Could consider MRE or small bowel follow-through. Will need colonoscopy in 4 to 6 weeks which may need to be
done sooner based on the results of repeat imaging.
Original Note:
Today's Communication / Plan
-
#Acute onset of worsening abdominal pain RLQ
CT suggestive of distal terminal ileitis with questionable phlegmon or abscess but she is currently nontoxic. Doubt neoplasm.
probable infectious etiology versus Crohn's ileitis.
WBC's normalized
some increased pain with eating full liquid diet
discussed with Dr. Murphy-- to review with IR for any drainage/biopsy
eventual CTE/MRE and colonoscopy in the next couple of weeks to schedule outpatient but may need sooner pending if continued pain
CRP 13.7 ,fecal can pending, ANCA and celiac pending
c-diff, salmonella, Campylobacter, ecoli neg other cx pending
Assessment / Plan
-
This is a very pleasant 74-year-old female with PMH of Hypothyroidism, GERD, colon polyps who was in her usual state of health up until Tuesday when she started experiencing right lower quadrant pain with diarrhea, diaphoresis adn syncope with fall.
She states that for the past 1 month she has been having mild right lower quadrant pain which was worse with eating and she thought it could be from mild diverticulitis so she cut back on eating nuts and seeds. On imaging when she came to the
hospital was initially done without oral contrast and showed probable ascending colon mass versus underdistention and then had a repeat CAT scan today with oral and IV contrast which showed nodular wall thickening involving the distal ileum
suggestive of enteritis with probable mass in the distal ileum versus phlegmon or abscess less likely neoplasm, probable ascending colitis, no free air. She was also noted to have gallstones. She is also status post appendectomy in 2021. She has
been started on antibiotics since admission has been on ceftriaxone and metronidazole and she feels much improved. Her last colonoscopy was in [address] Pederson she had a tubular adenoma and also had a few aphthous ulcers in the ileocecal valve
and was noted to have ulceration in the terminal ileum but the biopsies were negative for any chronic inflammation.
#Acute onset of worsening abdominal pain RLQ
CT suggestive of distal terminal ileitis with questionable phlegmon or abscess but she is currently nontoxic. Doubt neoplasm.
probable infectious etiology versus Crohn's ileitis.
WBC's normalized
some increased pain with eating full liquid diet
discussed with Dr. Murphy-- to review with IR for any drainage/biopsy
eventual CTE/MRE and colonoscopy in the next couple of weeks to schedule outpatient but may need sooner pending if continued pain
CRP 13.7 ,fecal can pending, ANCA and celiac pending
c-diff, salmonella, Campylobacter, ecoli neg other cx pending
Subjective
Subjective
Date of Service: April 08, 2025
04/08 brown stool on full liquid diet with some increased pain with eating
Objective
Data Reviewed
Laboratory Data:
Laboratory Results
04/08/25 07:33
Laboratory Results
Magnesium 2.0 mg/dl (1.6-2.3) 04/07/25 07:19
Total Bilirubin 0.6 mg/dl (0.2-1.3) 04/06/25 10:23
AST 21 U/L (14-36) 04/06/25 10:23
ALT 28 U/L (0-35) 04/06/25 10:23
Alkaline Phosphatase 60 U/L (38-126) 04/06/25 10:23
Lipase 656 U/L (23-300) H 04/05/25 23:05
Vital Signs and I&O:
Vital Signs
Temp Pulse Resp BP Pulse Ox
97.8 F 54 16 131/61 96
04/08/25 08:00 04/08/25 08:00 04/08/25 08:00 04/08/25 08:00 04/08/25 08:00
I&O
04/07/25 04/08/25 04/09/25
06:59 06:59 06:59
Intake Total 240 / 240 1200 / 1200
Balance 240 / 240 1200 / 1200
Physical Exam
Physical Exam
HEENT: Anicteric and Moist mucous membranes
Cardiology: Normal Sinus Rhythm
Pulmonary: Clear
GI: Soft, Distended (mild ) and Tender (RLQ tenderness )
Extremities: No Edema
Neuro: Non Focal
[2025-04-08 09:58] LABS: Blood Urea Nitrogen 8 mg/dl (7-17); Calcium 9.3 mg/dl (8.4-10.2); Carbon Dioxide 26 mmol/L (22-30); Chloride 107 mmol/L (98-107); Estimated Creatinine Clearance 57 ml/min; Glucose 87 mg/dl (70-99); Potassium 4.5 mmol/L (3.5-5.1); Sodium 140 mmol/L (135-145); eGFR > 60.00
[2025-04-08 10:13] LABS: C-Reactive Protein 13.70 mg/L (0.0-10.00)
--- NOTE | 2025-04-08 10:16 | CM ---
Patient to return to home with spouse when stable.
Plan; Home with spouse when stable.
[2025-04-08 11:47] VITALS: BP 141/78
--- NOTE | 2025-04-08 14:04 | CON.GS ---
Addendum entered and electronically signed by Kelechi Daniels MD 04/08/25 19:34:
I saw and examined the patient independently.
The Disassembler's note was reviewed and I agree with the note, assessment and plan except where noted below.
Comment: This is a very pleasant 74-year-old female who presents with 2 days of nausea vomiting and diarrhea in the setting of 1 month of mild right lower quadrant abdominal pain status post fairly uneventful laparoscopic appendectomy back in [address] Aggarwal. I personally reviewed her CT scans back from 2021 as well as her 2 recent ones here for this admission. She does have a phlegmonous mass abutting her staple line without clear etiology or leak from the intraluminal contrast. This
could represent a stump appendicitis though the differential still remains broad. Her main complaint at this time is severe reflux
For now would treat nonoperatively with IV antibiotics.
Okay for clears.
PPI ordered
General Surgery will follow
I spent 60 minutes in total for the care of this patient today including direct patient care and counseling, reviewing labs, imaging, coordination of care, as well as documentation.
Original Note:
Consultation
-
Date/Time Consultation Performed: 04/08/25 1310
Medical History
-
Chief Complaint: abdominal pain with n/v/d
History of Present Illness:
Ms Singleton is a 74 yo female with a h/o lap appendectomy in 2021 ([facility]), BL TKR, and hypothyroidism who notes mild RLQ pain intermittently over the past month. On Tuesday (04/05), the pain became more persistent and the following day she developed
nausea and vomiting with diarrhea. She had an episode of syncope which caused her to present for evaluation. She has noted diarrhea throughout the weekend although today it has started to slow. She denies active nausea or vomiting currently and has
been tolerating a full liquid diet.
Past Medical History
Past Surgical History: Appendectomy (2021), Orthopedic (BL TKR, right shoulder, laminectomy) and Other (last colonoscopy in 2018)
Social History
Tobacco: Non-Smoker
Alcohol: Occasional
Personal:
Living: With Family
Family History
Family History: Reviewed & Not Pertinent
Allergies / Home Medications
Allergy/AdvReac Type Severity Reaction Status Date / Time
morphine Allergy Vomiting Verified 04/05/25 22:07
penicillin G Allergy Hives-1980 Verified 04/05/25 22:07
Penicillins Allergy Hives-1980 Verified 04/05/25 22:07
pollen extracts Allergy SEASONAL-NASAL Verified 04/05/25 22:07
CONGESTION
�Medication �Instructions �Recorded �Confirmed �Type
levothyroxine 112 mcg tablet 112 mcg PO DAILY Thyroid 12/19/20 04/26/23 History
esomeprazole magnesium 20 mg 20 mg PO DAILY Gastrointestinal 01/27/22 04/26/23 History
capsule,delayed release (Nexium) issue
cetirizine 10 mg tablet (Zyrtec) 10 mg PO DAILYPRN PRN Allergies 01/28/22 04/26/23 History
calcium carbonate 500 mg PO DAILY ##0 04/18/23 04/26/23 History
cholecalciferol (vitamin D3) 25 25 mcg PO DAILY ##0 04/18/23 04/26/23 History
mcg (1,000 unit) tablet (Vitamin
D3)
magnesium 250 mg tablet 250 mg PO DAILY 04/18/23 04/26/23 History
acetaminophen 500 mg tablet (Pain 1,000 mg PO Q6HPRN PRN headache 04/26/23 04/26/23 History
Relief Extra Strength
(acetaminophen))
magnesium citrate 150 ml PO DAILYPRN PRN constipation 04/26/23 04/26/23 History
vitamin K2 (MK-4) 100 mcg tablet 100 mcg PO DAILY 04/26/23 04/26/23 History
oxycodone 5 mg tablet 2.5 mg (1/2 x 5 mg) PO Q8HPRN PRN 04/29/23 Rx
moderate severe pain 7 days #21
tabs
sennosides 8.6 mg-docusate sodium 1 tab PO BID 30 days #60 tabs 04/29/23 Rx
50 mg tablet (Senna Plus)
Review of Systems
-
History Source: Patient and Family
All other systems: Negative unless noted
A 10 point review of systems was completed, and was negative except as per HPI.
Physical Exam
Vital Signs
Temp Pulse Resp BP Pulse Ox
98 F 56 16 141/78 98
04/08/25 11:47 04/08/25 11:47 04/08/25 08:00 04/08/25 11:47 04/08/25 11:47
Body Mass Index (BMI) 23.4
Lab Results
04/08/25 07:33
04/08/25 07:33
WBC 10.3 10^3/uL (4.8-10.8) 04/08/25 07:33
Hgb 12.7 g/dL (12.0-16.0) 04/08/25 07:33
Hct 38.7 % (37.0-47.0) 04/08/25 07:33
Plt Count 303 10^3/uL (130-400) 04/08/25 07:33
Abs Immat Gran (auto) 0.1 10^3/uL (0-0.05) H 04/05/25 23:05
Neutrophils % 88.4 % (42.2-75.2) H 04/05/25 23:05
Physical Exam
General: Well Developed and Well Nourished
HEENT: Normocephalic and Moist Mucous Membranes
Respiratory: Non Labored Respirations
GI: Soft, Tender (generalized mild, moderate to RLQ) and Distended (mild)
Skin: Warm and Dry
Neuro: Awake, Alert and AO x 3
Psych: Calm
Data Reviewed
-
CT Scan: Image Personally Visualized and interpreted, Report Reviewed by me, Discussed with Physician, Discussed with Patient and Discussed with Family
Labs: Labs Reviewed by me, Discussed with Physician, Discussed with Patient and Discussed with Family
Old Records: Reviewed
Assessment / Plan
-
74 yo female with a h/o appendectomy in 2021 presenting with worsening RLQ x1 month with recent onset of n/v/d in the past few days. N/V now resolved but diarrhea persists although improving. CT imaging initially without PO contrast showed mild
enterocolitis with concern for possible ascending colon mass. Repeat CT the following day was done with PO contrast for better evaluation and demonstrated distal ileal wall thickening/ileitis with thickening/colitis of the wall of the right colon
with possible mass vs small phlegmon/abscess (3.1 x2.5x 2.5cm) near prior appendectomy staple line. Location not amenable to IR drainage or biopsy. Possible stump appendicitis/abscess although unclear. Currently on ABX with ceftriaxone IV and flagyl
PO. Afebrile. Leukocytosis present on admission and now resolved. Stool studies negative thus far. Coag neg staph in one set of blood cx, likely contaminant. Other blood cultures with no growth.
Plan:
Would continue on current ABX which will provide coverage of stump appendicitis
ABX/Exams/GI symptoms improving with current management
Undergoing gastroenterology work up for IBD, agree with colonoscopy/MRE in 4-6 weeks to further evaluate.
No emergent surgical intervention planned, will need continued outpatient follow up
--- NOTE | 2025-04-08 14:38 | W.PN.HOSP.TC ---
Today's Communication/Plan
-
maintain on abx
possible d/c in 24-48hrs
Assessment / Plan
Assessment / Plan
CT a/p
Patient is status post appendectomy.
Nodular wall thickening involving the distal ileum, suggestive of enteritis. There is an ovoid mass at the posterior and superior margin of the distal ileum, suspicious for phlegmon/abscess. Neoplastic mass could also be considered, but felt to be
less likely.
Mild thickening of the wall the inferior right colon, most likely reactive colitis.
No evidence for free intraperitoneal air.
Small amount of free fluid in the left posterior pelvis.
Stable 8 mm calcification within the right ovary.
3.7 cm fibroid is seen.
Cholelithiasis. No evidence for acute cholecystitis or biliary ductal dilation.
1. Enterocolitis
- Initial CT abdomen pelvis questioning possible enterocolitis.
- Repeat CT scan showing nodular wall thickening involving distal ileum suggestive of enteritis
- Patient have diarrhea and stool studies so far negative for Cryptosporidium/C. difficile. Bacterial culture pending
- GI also checking for fecal calprotectin
- Being maintained on empiric Rocephin and Flagyl
- GI evaluated and possibly planning to do eventual colonoscopy
2. Mass versus phlegmon juxtapositioned to distal ileum
- await surgical evaluation, question of possibly of stump appendicitis
- Area in question is not amenable to needle aspiration/biopsy by IR
3. UTI -ruled out
- Initial CT abdomen pelvis questioning ureteral inflammation
- UA clear with no bacteria reported, no WBC reported g
4. Vasovagal syncope
- Insetting of diarrhea/vomiting
- Orthostatic vitals negative
- No recurrent episode in hospital
5. Gastroesophageal reflux disease
- Patient having some reflux symptoms, provided Tums
Hypothyroidism
DVT ppx: Lovenox
Code: Full
Total time spent : 54 mins
Case discussed with surgery/GI
Anticipated Discharge: 24 - 48 hours
Subjective/Interval History
-
Date of Service: April 08, 2025
no abd pain/nausea/vomiting
still have some loose stool
Objective Data
-
Labs:
Laboratory Results
04/08/25
07:33
WBC 10.3
Hgb 12.7
Hct 38.7
Plt Count 303
Sodium 140
Potassium 4.5
Chloride 107
Carbon Dioxide 26
BUN 8
Creatinine 0.7
Glucose 87
Calcium 9.3
Vital Signs:
Vital Signs
Temp Pulse Resp BP Pulse Ox
98 F 56 16 141/78 98
04/08/25 11:47 04/08/25 11:47 04/08/25 08:00 04/08/25 11:47 04/08/25 11:47
I&O
04/07/25 04/08/25 04/09/25
06:59 06:59 06:59
Intake Total 240 / 240 1200 / 1200
Balance 240 / 240 1200 / 1200
Review of Systems
-
Respiratory: Reports No Symptoms
Cardiac: Reports No Symptoms
Abdomen/GI: Reports No Symptoms
Physical Exam
-
General: No Apparent Distress
HEENT: Normocephalic and Atraumatic
Respiratory: Negative Wheezes
Cardiac: Regular Rhythm and S1/S2
GI: Soft, Nondistended and Tender
Musculoskeletal: No Edema
Neuro: AO x 3
Psych: Calm
[2025-04-08 15:55] VITALS: BP 146/81
[2025-04-08] MEDS: STERILE WATER FOR INJECTION 20 ML IV ×2 (15:59→16:47)
[2025-04-08] MEDS: LOVENOX SC (16:24)
[2025-04-08] MEDS: ROCEPHIN 2000 MG IV (17:06)
[2025-04-08] MEDS: FLUSH (NSS) 10 FLUSH IV ×2 (17:06→18:01)
[2025-04-08] MEDS: NSS (PRESERVATIVE FREE) 10 ML IV (19:52)
[2025-04-08] MEDS: PROTONIX IV 40 MG IV (19:52)
[2025-04-08 23:00] VITALS: BP 112/69
[2025-04-09] MEDS: LR 1000 IV (03:42)
[2025-04-09] MEDS: SYNTHROID 112 MCG PO (05:57)
[2025-04-09 07:31] VITALS: BP 132/83; BP 134/76; BP 136/77; PULSE 62; PULSE 64; PULSE 67
[2025-04-09 08:06] LABS: Hematocrit 37.7 % (37.0-47.0); Hemoglobin 12.6 g/dL (12.0-16.0); Mean Corp Hgb Conc. 33.4 g/dL (33.0-37.0); Mean Corpuscular Volume 92.9 fL (81.0-99.0); Platelet Count 303 10^3/uL (130-400); Red Cell Dist. Width 13.2 % (11.5-14.5)
[2025-04-09] MEDS: PROTONIX IV 40 MG IV (08:21)
[2025-04-09] MEDS: FLAGYL 500 MG PO ×3 (08:22→23:41)
[2025-04-09] MEDS: NSS (PRESERVATIVE FREE) 10 ML IV (08:22)
[2025-04-09 08:26] LABS: Blood Urea Nitrogen 7 mg/dl (7-17); Calcium 9.5 mg/dl (8.4-10.2); Carbon Dioxide 26 mmol/L (22-30); Chloride 108 mmol/L (98-107); Estimated Creatinine Clearance 57 ml/min; Glucose 96 mg/dl (70-99); Potassium 4.6 mmol/L (3.5-5.1); Sodium 140 mmol/L (135-145); eGFR > 60.00
--- NOTE | 2025-04-09 10:05 | CM ---
Home no needs when stable.
Plan; Home no needs.
--- NOTE | 2025-04-09 11:15 | W.PN.GI.CBS2 ---
Addendum entered and electronically signed by Leah Glass MD 04/09/25 18:05:
I saw and examined the patient.
The FUR CLIPPER's note was reviewed and I agree with the note.
Comment: Symptoms have markedly improved she has been having less frequent stools and abdominal pain and distention also improving. Stool studies so far are negative. Discussed with Dr. Grigsby possible stump appendicitis. Advancing to low
residue diet which if she tolerates possible DC tomorrow and will repeat imaging with MRE in 4 weeks and followed by colonoscopy with ileoscopy to rule out possible Crohn's ileitis. possible stump appendicitis versus infectious ileitis from probable
food poisoning versus Crohn's.
Original Note:
Today's Communication / Plan
-
#Acute onset of worsening abdominal pain RLQ
CT suggestive of distal terminal ileitis with questionable phlegmon or abscess but she is currently nontoxic. Doubt neoplasm.
probable infectious etiology versus Crohn's ileitis.
WBC's remain normal
still with some RLQ pain with eating but slow improvement
not amendable to IR bx or drainage
will review with dr. Glass for diet advancement and timing of SB imaging SBFT vs MRE
CRP 13.7 ,fecal can pending, ANCA and celiac pending
s/p colorectal surgical evaluation-- non operative management appreciate evaluation
stool studies neg but stool culture was repeated and pending
Will need colonoscopy in 4 to 6 weeks which may need to be done sooner based on the results of repeat imaging.
Assessment / Plan
-
This is a very pleasant 74-year-old female with PMH of Hypothyroidism, GERD, colon polyps who was in her usual state of health up until Tuesday when she started experiencing right lower quadrant pain with diarrhea, diaphoresis adn syncope with fall.
She states that for the past 1 month she has been having mild right lower quadrant pain which was worse with eating and she thought it could be from mild diverticulitis so she cut back on eating nuts and seeds. On imaging when she came to the
hospital was initially done without oral contrast and showed probable ascending colon mass versus underdistention and then had a repeat CAT scan with oral and IV contrast which showed nodular wall thickening involving the distal ileum suggestive of
enteritis with probable mass in the distal ileum versus phlegmon or abscess less likely neoplasm, probable ascending colitis, no free air. She was also noted to have gallstones. She is also status post appendectomy in 2021. She has been started
on antibiotics since admission has been on ceftriaxone and metronidazole and she feels much improved. Her last colonoscopy was in [address] Pederson she had a tubular adenoma and also had a few aphthous ulcers in the ileocecal valve and was noted
to have ulceration in the terminal ileum but the biopsies were negative for any chronic inflammation.
#Acute onset of worsening abdominal pain RLQ
CT suggestive of distal terminal ileitis with questionable phlegmon or abscess but she is currently nontoxic. Doubt neoplasm.
probable infectious etiology versus Crohn's ileitis.
WBC's remain normal
still with some RLQ pain with eating but slow improvement
not amendable to IR bx or drainage
will review with dr. Glass for diet advancement and timing of SB imaging SBFT vs MRE
CRP 13.7 ,fecal can pending, ANCA and celiac pending
s/p colorectal surgical evaluation-- non operative management appreciate evaluation
stool studies neg but stool culture was repeated and pending
Will need colonoscopy in 4 to 6 weeks which may need to be done sooner based on the results of repeat imaging.
Subjective
Subjective
Date of Service: April 09, 2025
full liquid diet, 04/08 brown liquid stool
Objective
Data Reviewed
Laboratory Data:
Laboratory Results
04/09/25 07:43
04/09/25 07:43
Laboratory Results
Magnesium 2.0 mg/dl (1.6-2.3) 04/07/25 07:19
Total Bilirubin 0.6 mg/dl (0.2-1.3) 04/06/25 10:23
AST 21 U/L (14-36) 04/06/25 10:23
ALT 28 U/L (0-35) 04/06/25 10:23
Alkaline Phosphatase 60 U/L (38-126) 04/06/25 10:23
Lipase 656 U/L (23-300) H 04/05/25 23:05
Vital Signs and I&O:
Vital Signs
Temp Pulse Resp BP Pulse Ox
97.9 F 62 16 112/69 95
04/09/25 07:30 04/08/25 23:00 04/09/25 07:30 04/08/25 23:00 04/08/25 23:00
I&O
04/08/25 04/09/25 04/10/25
06:59 06:59 06:59
Intake Total 1200 / 1200 1200 / 1200
Balance 1200 / 1200 1200 / 1200
Physical Exam
Physical Exam
HEENT: Anicteric and Moist mucous membranes
Cardiology: Normal Sinus Rhythm
Pulmonary: Clear
GI: Soft, Non Distended and Tender (mild RLQ)
Extremities: No Edema
Neuro: Non Focal
--- NOTE | 2025-04-09 13:04 | W.PN.HOSP.TC ---
Today's Communication/Plan
-
await GI/GS input
diet advancement if cleared by GS/GI
maintain on abx
stop further IVF
Assessment / Plan
Assessment / Plan
CT a/p
Patient is status post appendectomy.
Nodular wall thickening involving the distal ileum, suggestive of enteritis. There is an ovoid mass at the posterior and superior margin of the distal ileum, suspicious for phlegmon/abscess. Neoplastic mass could also be considered, but felt to be
less likely.
Mild thickening of the wall the inferior right colon, most likely reactive colitis.
No evidence for free intraperitoneal air.
Small amount of free fluid in the left posterior pelvis.
Stable 8 mm calcification within the right ovary.
3.7 cm fibroid is seen.
Cholelithiasis. No evidence for acute cholecystitis or biliary ductal dilation.
1. Enterocolitis
- Initial CT abdomen pelvis questioning possible enterocolitis.
- Repeat CT scan showing nodular wall thickening involving distal ileum suggestive of enteritis
- Patient have diarrhea and stool studies so far negative for Cryptosporidium/C. difficile. Bacterial culture neg as well.
- GI also checking for fecal calprotectin
- Being maintained on empiric Rocephin and Flagyl
- GI evaluated and possibly planning to do eventual colonoscopy
2. Mass versus phlegmon juxtapositioned to distal ileum
- await surgical evaluation, question of possibly of stump appendicitis
- Area in question is not amenable to needle aspiration/biopsy by IR
3. UTI -ruled out
- Initial CT abdomen pelvis questioning ureteral inflammation
- UA clear with no bacteria reported, no WBC reported g
4. Vasovagal syncope
- In setting of diarrhea/vomiting
- Orthostatic vitals negative
- No recurrent episode in hospital
5. Gastroesophageal reflux disease
- Patient having some reflux symptoms, provided Tums
Hypothyroidism
DVT ppx: Lovenox
Code: Full
Anticipated Discharge: 24 - 48 hours
Subjective/Interval History
-
Date of Service: April 09, 2025
Continues to have some right lower quadrant tenderness
BM Frequency is slowly improving. although continues to have liquid stool
Objective Data
-
Labs:
Laboratory Results
04/09/25
07:43
WBC 8.8
Hgb 12.6
Hct 37.7
Plt Count 303
Sodium 140
Potassium 4.6
Chloride 108 H
Carbon Dioxide 26
BUN 7
Creatinine 0.7
Glucose 96
Calcium 9.5
Vital Signs:
Vital Signs
Temp Pulse Resp BP Pulse Ox
97.9 F 62 16 112/69 95
04/09/25 07:30 04/08/25 23:00 04/09/25 07:30 04/08/25 23:00 04/08/25 23:00
I&O
04/08/25 04/09/25 04/10/25
06:59 06:59 06:59
Intake Total 1200 / 1200 1200 / 1200
Balance 1200 / 1200 1200 / 1200
Review of Systems
-
Respiratory: Reports No Symptoms
Cardiac: Reports No Symptoms
Abdomen/GI: Reports Abdominal Pain and Diarrhea; Denies Nausea or Vomiting
Physical Exam
-
General: No Apparent Distress
GI: Nondistended, Normal Bowel Sounds and Tender
Neuro: AO x 3
Psych: Calm
[2025-04-09 15:34] VITALS: BP 131/68
[2025-04-09] MEDS: ROCEPHIN 2000 MG IV (16:00)
[2025-04-09] MEDS: LOVENOX SC (16:05)
[2025-04-09] MEDS: FLUSH (NSS) 10 FLUSH IV (16:10)
[2025-04-09] MEDS: FLUSH (NSS) IV ×2 (16:12)
--- NOTE | 2025-04-09 17:49 | W.PN.GS2 ---
Today's Communication / Plan
-
-- LRD
-- Abx: Ceftriaxone and Flagyl
Assessment / Plan
-
Patient is a 74 yo F p/w RLQ abdominal pain, nausea, vomiting, diarrhea
CT scan imaging demonstrates a phlegmonous mass abutting the staple line as well as small bowel and cecum. No evidence of a leak or clear abscess formation. Differential includes stump appendicitis, versus primary colonic or small bowel etiology.
Of note, she did have ulcers noted at the IC valve as well as within the TI on a previous colonoscopy in 2019. Prior imaging and op reports reviewed. Surgical intervention at this time would almost certainly necessitate a ileocecectomy. Clinical
improvement on antibiotics; recommend continued medical management. Reviewed the likelihood of needing a MRE and colonoscopy in the future. GI consult noted. Pending these results and work-up she will need outpatient surgical follow-up. All
questions answered.
-- LRD
-- Abx: Ceftriaxone and Flagyl
-- Pending hospital course likely outpatient MRE and colonoscopy
-- Pending hospital course outpatient GI and General Surgery follow-up
Subjective Data
-
Date of Service: April 09, 2025
Feels improved. Less abdominal discomfort. Continues to have some mild discomfort in the RLQ and LUQ. No nausea or vomiting. Passing loose stools, though becoming less frequent. Passing flatus. Afebrile.
Objective Data
-
Intake and Output
04/08/25 04/09/25 04/10/25
06:59 06:59 06:59
Intake Total 1200 / 1200 1200 / 1200 2119
Balance 1200 / 1200 1200 / 1200 2119
Intake:
Oral fluids 1100 / 1100
IV fluids (Total) 1200 / 1200 1200 / 1200 1000 / 1000
IV piggybacks
Other:
Number of approximated SMALL 4
amounts of urine
Number of approximated MODERATE 1 2
amounts of urine
Number of approximated LARGE 1 3
amounts of urine
Vital Signs
Temp Pulse Resp BP Pulse Ox
97.5 F 70 18 131/68 98
04/09/25 15:34 04/09/25 15:34 04/09/25 15:34 04/09/25 15:34 04/09/25 15:34
Lab Results
04/09/25 07:43
04/09/25 07:43
Calcium 9.5 mg/dl (8.4-10.2) 04/09/25 07:43
Magnesium 2.0 mg/dl (1.6-2.3) 04/07/25 07:19
Total Bilirubin 0.6 mg/dl (0.2-1.3) 04/06/25 10:23
AST 21 U/L (14-36) 04/06/25 10:23
ALT 28 U/L (0-35) 04/06/25 10:23
Alkaline Phosphatase 60 U/L (38-126) 04/06/25 10:23
Total Protein 5.6 g/dl (6.3-8.2) L 04/06/25 10:23
Albumin 3.3 g/dl (3.5-5.0) L 04/06/25 10:23
Physical Exam
-
Gen: NAD
Abd: soft, mild tenderness in RLQ, mild/moderate distension, non-peritoneal, prior incisions well healed
Patient has a banegas catheter: No
Patient has a central line: No
[2025-04-09 23:00] VITALS: BP 107/70
[2025-04-10] MEDS: SYNTHROID 112 MCG PO (06:15)
[2025-04-10 07:50] VITALS: BP 123/81; BP 143/83; PULSE 59; PULSE 65
[2025-04-10 07:52] VITALS: BP 123/81
[2025-04-10 08:19] LABS: Hematocrit 40.5 % (37.0-47.0); Hemoglobin 13.0 g/dL (12.0-16.0); Mean Corp Hgb Conc. 32.1 g/dL (33.0-37.0); Mean Corpuscular Volume 92.0 fL (81.0-99.0); Platelet Count 317 10^3/uL (130-400); Red Cell Dist. Width 13.2 % (11.5-14.5)
[2025-04-10] MEDS: PROTONIX IV 40 MG IV (08:25)
[2025-04-10] MEDS: NSS (PRESERVATIVE FREE) 10 ML IV (08:26)
[2025-04-10] MEDS: FLUSH (NSS) 1 FLUSH IV (08:27)
[2025-04-10] MEDS: FLAGYL 500 MG PO ×2 (08:29→15:48)
[2025-04-10 09:10] LABS: Blood Urea Nitrogen 9 mg/dl (7-17); Calcium 9.4 mg/dl (8.4-10.2); Carbon Dioxide 27 mmol/L (22-30); Chloride 106 mmol/L (98-107); Estimated Creatinine Clearance 57 ml/min; Glucose 100 mg/dl (70-99); Potassium 4.7 mmol/L (3.5-5.1); Sodium 139 mmol/L (135-145); eGFR > 60.00
--- NOTE | 2025-04-10 09:23 | CM ---
Home when stable, no needs.
Plan; Home when stable, no needs.
[2025-04-10 09:57] VITALS: BP 123/81; BP 143/83; PULSE 59; PULSE 65
--- NOTE | 2025-04-10 09:59 | PTCARENOTE ---
Orthostatic blood pressure obtained after 4 minute holding position
[2025-04-10 11:44] VITALS: BP 115/72; BP 126/76; BP 131/72; PULSE 66; PULSE 67; PULSE 68
--- NOTE | 2025-04-10 11:46 | W.PN.GS2 ---
Today's Communication / Plan
-
OK for DC
Assessment / Plan
-
Patient is a 74 yo F p/w RLQ abdominal pain, nausea, vomiting, diarrhea
CT scan imaging demonstrates a phlegmonous mass abutting the staple line as well as small bowel and cecum. No evidence of a leak or clear abscess formation. Differential includes stump appendicitis, versus primary colonic or small bowel etiology.
Of note, she did have ulcers noted at the IC valve as well as within the TI on a previous colonoscopy in 2019. Prior imaging and op reports reviewed. Surgical intervention at this time would almost certainly necessitate a ileocecectomy. Clinical
improvement on antibiotics; recommend continued medical management. Reviewed the likelihood of needing a MRE, EGD and colonoscopy in the future. GI consult noted. Pending these results and work-up she will need outpatient surgical follow-up. All
questions answered.
Given the history (1 month of slow onset progressive symptoms) suspect inflammatory vs neoplastic process, less likely infectious
-- LRD
-- Abx: Ceftriaxone and Flagyl
-- OK for DC home +/- abx
-- Agree with outpt c-scope and EGD at earliest possible time (non urgent)
Subjective Data
-
Date of Service: April 10, 2025
AFVSS, feels improved, conts with early satiety but denies n/v, dino LRD
Objective Data
-
Intake and Output
04/09/25 04/10/25 04/11/25
06:59 06:59 06:59
Intake Total 1200 / 1200 2119
Balance 1200 / 1200 2119
Intake:
Oral fluids 1100 / 1100
IV fluids (Total) 1200 / 1200 1000 / 1000
IV piggybacks
Other:
Number of approximated MODERATE 2 2
amounts of urine
Number of approximated LARGE 3
amounts of urine
Vital Signs
Temp Pulse Resp BP Pulse Ox
98.6 F 59 20 123/81 99
04/10/25 07:52 04/10/25 07:52 04/10/25 07:52 04/10/25 07:52 04/10/25 07:52
Lab Results
04/10/25 07:50
04/10/25 07:50
Calcium 9.4 mg/dl (8.4-10.2) 04/10/25 07:50
Magnesium 2.0 mg/dl (1.6-2.3) 04/07/25 07:19
Total Bilirubin 0.6 mg/dl (0.2-1.3) 04/06/25 10:23
AST 21 U/L (14-36) 04/06/25 10:23
ALT 28 U/L (0-35) 04/06/25 10:23
Alkaline Phosphatase 60 U/L (38-126) 04/06/25 10:23
Total Protein 5.6 g/dl (6.3-8.2) L 04/06/25 10:23
Albumin 3.3 g/dl (3.5-5.0) L 04/06/25 10:23
Physical Exam
-
Gen: NAD
Abd: soft, nt
Patient has a banegas catheter: No
Patient has a central line: No
[2025-04-10 14:29] LABS: tTG IgA Antibody 4.8 EU/ml (0-19); tTG IgG Antibody 17.4 EU/ml (0-19)
--- NOTE | 2025-04-10 14:53 | W.DCSUMMARY ---
Discharge Summary
Discharge Data
Date of Admission: 04/06/25
Date of Discharge: 04/10/25
-
Pending Results: No
Hospital Course
Discharging Physician : Dr Iftikhar Murphy
Disposition : To home
Primary care physician : Dr Shivam Redmond
Principal Discharge diagnosis :
Small bowel/ileal infection
Possible stump appendicitis
Ileal mass versus phlegmon
Vasovagal syncope
Chronic Discharge diagnosis :
Gastroesophageal reflux disease
Hypothyroidism
Physical examination:
HEENT: moist mucus membrane
Chest: Clear to auscultation
Heart: N s1/s2, RRR, no rub/murmur/gallops
Abd: N BS, soft, nontender, nondistended, no organomegaly
Neuro: No motor deficits,
Ext: No cyanosis, Clubbing, edema
Hospital Course :
Patient is a 74-year-old female with above-mentioned past medical history came to ER with syncopal episode after having episode of nausea and vomiting. Patient was also having diarrhea. Patient apparently was having some lower abdominal discomfort
and noted to having some cloudy urine and took some home antibiotics. After that patient started developing abdominal symptoms. Patient had a CT head/EKG which did not show any clear abnormality. Patient syncope was felt to be vasovagal in
nature. CT of abdomen pelvis was done which showed ileal thickening with concern of enterocolitis. Patient was started on IV antibiotics and GI was involved in care. GI sent stool studies for C. difficile and other bacterial etiology and all were
negative. Patient had a repeat CT scan of abdomen which showed nodular wall thickening of distal ileum with possible phlegmon/neoplastic mass in the area. General surgery was involved in care who evaluated and this was felt to be related to stump
appendicitis. Discussion for further plan for MRI abdomen imaging versus endoscopy was discussed although in light of improving symptoms this was postponed. After improvement of symptoms patient was discharged on short course of oral antibiotics
with plan for patient to follow-up in GI office.
Important imaging findings :
None
Procedure findings :
None
Discharge Plan
-
Patient Disposition: Home (Routine Discharge)
Discharge Diagnosis/Procedures: Infectious Ileitis vs Stump appendicitis, Abdominal phlegmon vs mass
Condition: Fair
Diet: Other diet
Additional Diets: Low residue diet
Activity: As tolerated
Driving Restrictions: No driving
Bathing Restrictions: OK to Shower
Referrals:
Epi Wood MD [Active, Gastroenterology] - in three to four weeks
Shivam Redmond MD [Family Provider, Family Practice] - in one week
Prescriptions:
New
cefdinir 300 mg capsule
300 mg PO BID 7 Days Qty: 14 0RF
metronidazole 500 mg tablet
500 mg PO TID 7 Days Qty: 21 0RF
pantoprazole 40 mg tablet,delayed release (DR/EC)
See Rx Instructions .ROUTE .COMPLEX Qty: 45 1RF
Rx Instructions:
Take 1 Tablet twice daily for 14 days THEN
Take 1 Tablet daily for maintenance
Continued
levothyroxine 112 MCG tablet
112 mcg PO DAILY
cetirizine [Zyrtec] 10 mg Tablet
10 mg PO DAILYPRN PRN (Reason: Allergies)
calcium carbonate 500 mg calcium (1,250 mg) Tablet
500 mg PO DAILY Qty: 0
magnesium 250 mg Tablet
250 mg PO DAILY
cholecalciferol (vitamin D3) [Vitamin D3] 25 mcg (1,000 unit) Tablet
25 mcg PO DAILY Qty: 0
magnesium citrate Solution
150 ml PO DAILYPRN PRN (Reason: constipation)
vitamin K2 (MK-4) 100 mcg Tablet
100 mcg PO DAILY
acetaminophen [Pain Relief ES (acetaminophen)] 500 mg tablet
1,000 mg PO Q6HPRN PRN (Reason: headache)
oxycodone 5 mg Tablet
2.5 mg PO Q8HPRN PRN (Reason: moderate severe pain) 7 Days Qty: 21 0RF
Rx Instructions:
5mg if pain severe, 2.5mg half tab if pain moderate
sennosides-docusate sodium [Senna Plus] 8.6-50 mg Tablet
1 tab PO BID 30 Days Qty: 60 0RF
Rx Instructions:
Hold if diarrhea
Discontinued
esomeprazole magnesium [Nexium] 20 mg Capsule,Delayed Release(Dr/Ec)
20 mg PO DAILY
Discharge Orders:
Discharge Patient (As Directed); Ordered 04/10/25
Ordered By: Iftikhar Murphy
Discharge Date and Time
Print Language: KENYAN
[2025-04-10 15:49] VITALS: BP 112/71
--- NOTE | 2025-04-10 16:22 | W.PN.GI.CBS2 ---
Today's Communication / Plan
-
OK for PR
Assessment / Plan
-
This is a very pleasant 74-year-old female with PMH of Hypothyroidism, GERD, colon polyps who was in her usual state of health up until Tuesday when she started experiencing right lower quadrant pain with diarrhea, diaphoresis adn syncope with fall.
She states that for the past 1 month she has been having mild right lower quadrant pain which was worse with eating and she thought it could be from mild diverticulitis so she cut back on eating nuts and seeds. On imaging when she came to the
hospital was initially done without oral contrast and showed probable ascending colon mass versus underdistention and then had a repeat CAT scan with oral and IV contrast which showed nodular wall thickening involving the distal ileum suggestive of
enteritis with probable mass in the distal ileum versus phlegmon or abscess less likely neoplasm, probable ascending colitis, no free air. She was also noted to have gallstones. She is also status post appendectomy in 2021. She has been started
on antibiotics since admission has been on ceftriaxone and metronidazole and she feels much improved. Her last colonoscopy was in [address] Pederson she had a tubular adenoma and also had a few aphthous ulcers in the ileocecal valve and was noted
to have ulceration in the terminal ileum but the biopsies were negative for any chronic inflammation.
#Acute onset of worsening abdominal pain RLQ
CT suggestive of distal terminal ileitis with questionable phlegmon or abscess but she is currently nontoxic. Doubt neoplasm.
probable infectious etiology versus Crohn's ileitis versus stump appendicitis.
WBC count normalized on antibiotics
CRP 13.7 ,fecal can pending, IBD serologies pending, celiac serologies negative
Symptoms have improved and stool tests are negative
Okay to PR home to complete a course of antibiotics for a total of 7 to [address] Murphy and Dr. Aggarwal
Will schedule her for MR enterography in 2 weeks and colonoscopy following that if inflammation is reduced
Subjective
Subjective
Date of Service: April 10, 2025
Symptoms have markedly improved,
Tolerating diet and anxious to go home afebrile
Objective
Data Reviewed
Laboratory Data:
Laboratory Results
04/10/25 07:50
04/10/25 07:50
Laboratory Results
Magnesium 2.0 mg/dl (1.6-2.3) 04/07/25 07:19
Total Bilirubin 0.6 mg/dl (0.2-1.3) 04/06/25 10:23
AST 21 U/L (14-36) 04/06/25 10:23
ALT 28 U/L (0-35) 04/06/25 10:23
Alkaline Phosphatase 60 U/L (38-126) 04/06/25 10:23
Lipase 656 U/L (23-300) H 04/05/25 23:05
Vital Signs and I&O:
Vital Signs
Temp Pulse Resp BP Pulse Ox
98.6 F 70 16 112/71 99
04/10/25 15:49 04/10/25 15:49 04/10/25 15:49 04/10/25 15:49 04/10/25 15:49
I&O
04/09/25 04/10/25 04/11/25
06:59 06:59 06:59
Intake Total 1200 / 1200 0 / 2120 850 / 850
Balance 1200 / 1200 0 / 2120 850 / 850
Physical Exam
Physical Exam
Cardiology: Normal Sinus Rhythm
Pulmonary: Clear
GI: Soft, Non Distended, Tender (Mild right lower quadrant tenderness) and Normal Bowel Sounds
[2025-04-10 17:04] LABS: Serine Protease-3, IgG 0 AU/mL (0-19)
[2025-04-10 21:17] LABS: Calprotectin, Fecal <5 ug/g (<=49)
== END 2025-04-10 16:32 | disposition home or self-care (01) | DRG 392 ==
LOC: 4 WEST ACU 05:49
PROVIDERS: Emergency Medicine; Internal Medicine; ADMITTING PHYSICIAN Internal Medicine; ATTENDING PHYSICIAN Hospitalist; CONSULT PHYSICIAN Internal Medicine Gastroenterology; EMERGENCY PHYSICIAN Emergency Medicine; FAMILY PHYSICIAN Family Medicine; OTHER PHYSICIAN Surgery
DX: A09 Infectious gastroenteritis and colitis, unspecified (principal); S06.9X9A Unspecified intracranial injury with loss of consciousness of unspecified duration, initial encounter; K35.80 Unspecified acute appendicitis; K63.0 Abscess of intestine; K21.9 Gastro-esophageal reflux disease without esophagitis; E03.9 Hypothyroidism, unspecified; R55 Syncope and collapse; K80.20 Calculus of gallbladder without cholecystitis without obstruction; Z96.653 Presence of artificial knee joint, bilateral; Z88.0 Allergy status to penicillin; Z88.5 Allergy status to narcotic agent; I49.3 Ventricular premature depolarization; Z86.0100 Personal history of colon polyps, unspecified; W18.11XA Fall from or off toilet without subsequent striking against object, initial encounter; Z79.890 Hormone replacement therapy; Z90.49 Acquired absence of other specified parts of digestive tract
CPT/HCPCS: 70450; 74177; 80048; 80053; 81003; 81015; 82784; 83516; 83605; 83690; 83735; 83993; 85025; 85027; 86140; 86231; 87040; 87045; 87046; 87086; 87154; 87205; 87324; 87328; 87329; 87427; 87449; 93005; 96361; 96374; 99285; Q9967

== ENCOUNTER 2025-05-02 06:27 | Day surgery (SDC) | payer OTHER, SELFPAY | END 2025-05-02 15:57 | disposition home or self-care (01) | LOC: GI 06:27 | PROVIDERS: ATTENDING PHYSICIAN Internal Medicine Gastroenterology | DX: R19.4 Change in bowel habit (principal); R93.3 Abnormal findings on diagnostic imaging of other parts of digestive tract; K57.30 Diverticulosis of large intestine without perforation or abscess without bleeding | CPT/HCPCS: 45380; 88305 ==

== ENCOUNTER → 2025-05-07 07:16 | Outpatient (REF) | payer OTHER, SELFPAY | LOC: MRI 07:16 | PROVIDERS: ATTENDING PHYSICIAN Internal Medicine Gastroenterology; FAMILY PHYSICIAN Nurse Practitioner | DX: R93.89 Abnormal findings on diagnostic imaging of other specified body structures (principal); R10.31 Right lower quadrant pain | CPT/HCPCS: 72197; 74183; A9585 ==